=== PATIENT | male | born 2000 | race Caucasian/White ===

== ENCOUNTER 2023-03-11 19:01 | Emergency (ER) | payer OTHER ==
[~2023-03-11] VITALS: Ht 188 cm; Wt 94.3 kg
[2023-03-11] MEDS ORDERED: HYDROCODONE/APAP 5MG-325MG TAB PO ONE (20:00)
[2023-03-11] MEDS ORDERED: ONDANSETRON HCL INJ 2MG/ML 2ML 2 MG/ML VIAL IV STA (20:10)
[2023-03-11] MEDS ORDERED: SODIUM CHLORIDE 0.9% 1000ML 1,000 ML IV ONE (20:15)
[2023-03-11] MEDS ORDERED: Morphine 4mg INJECTION 4 MG/ML INJ IV ONE (20:15)
[2023-03-11] MEDS ORDERED: HYDROCODON-ACE1 EA11 PO (22:53)
[2023-03-11 23:38] VITALS: BP 146/66
== END 2023-03-11 23:36 | disposition home or self-care (01) ==
LOC: ER 19:08
DX: S82.52XA Displaced fracture of medial malleolus of left tibia, initial encounter for closed fracture (principal); S82.492A Other fracture of shaft of left fibula, initial encounter for closed fracture; X50.1XXA Overexertion from prolonged static or awkward postures, initial encounter; Y93.89 Activity, other specified; Y92.89 Other specified places as the place of occurrence of the external cause
CPT/HCPCS: 27762; 73610; 99284; J2270; J2405; J7030

== ENCOUNTER 2023-03-12 03:11 | Emergency (ER) | payer SELFPAY ==
[~2023-03-12] VITALS: Ht 188 cm; Wt 94.3 kg
[~2023-03-12 03:11] MED LIST: HYDROCODON-ACE1 EA11 PO
[2023-03-12 05:18] VITALS: BP 132/80
== END 2023-03-12 05:00 | disposition home or self-care (01) ==
LOC: ER 03:24
DX: Z47.89 Encounter for other orthopedic aftercare (principal)
CPT/HCPCS: 99283